=== PATIENT | female | born 1945 | race Caucasian/White ===

== ENCOUNTER → 2018-11-22 | Outpatient (CLI) | payer OTHER | LOC: M.MRI 11-20 17:30 | DX: S83.282A Other tear of lateral meniscus, current injury, left knee, initial encounter (principal); S83.242A Other tear of medial meniscus, current injury, left knee, initial encounter; M17.12 Unilateral primary osteoarthritis, left knee; X58.XXXA Exposure to other specified factors, initial encounter; Y93.89 Activity, other specified; Y92.89 Other specified places as the place of occurrence of the external cause; Y99.8 Other external cause status ==

== ENCOUNTER 2018-12-24 06:56 | Inpatient (IN) | payer OTHER ==
[2018-12-12 09:12] LABS: HEMATOCRIT 39.5 % (37.0-47.0); HEMOGLOBIN 12.9 gm/dL (12.0-15.0); MCH 27.5 pg (26.0-34.0); MCHC 32.5 g/dL (28.0-37.0); MCV 84.6 fL (80.0-100.0); MPV 7.8 fl. (7.2-11.1); RBC 4.67 mil/uL (4.20-5.00); RDW-CV 14.6 % (10.5-14.5); WBC 10.5 thou/uL (4.0-11.0)
[2018-12-12 09:12] LABS: URINE BILIRUBIN NEGATIVE (Negative); URINE BLOOD NEGATIVE (Negative); URINE CLARITY CLEAR; URINE COLOR YELLOW; URINE GLUCOSE-RANDOM NEGATIVE (Negative); URINE KETONES NEGATIVE (Negative); URINE LEUKOCYTES-REFLEX 1+ (Negative); URINE NITRITE-REFLEX NEGATIVE (Negative); URINE PROTEIN NEGATIVE (Negative); URINE UROBILINOGEN 0.2 E.U./dl (0.2-1.0)
[2018-12-12 09:15] LABS: PROTIME 10.4 Seconds (9.20-11.50)
[2018-12-12 09:22] LABS: SQUAMOUS 4-10 Moderate /LPF (0-3)
[2018-12-12 09:23] LABS: BACTERIA-REFLEX 1-9 Few /HPF (None Seen); CASTS None Seen /LPF (None Seen); CRYSTALS None Seen /LPF (None Seen); MUCUS 0-3 Light strn/LPF (None Seen); URINE RBC 0-2 Rare /HPF (0-2); URINE WBC-REFLEX 6-15 Few /HPF (0-5)
[2018-12-12 09:27] LABS: ALBUMIN 3.9 g/dL (3.4-5.0); CALCIUM 9.3 mg/dL (8.5-10.1); POTASSIUM 3.9 mmol/L (3.5-5.1); TOTAL BILIRUBIN 0.4 mg/dL (<0.1-1.0); TOTAL PROTEIN 7.7 g/dL (6.4-8.2)
--- NOTE | 2018-12-12 18:25 | EKG ---
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
[~2018-12-24] VITALS: Ht 162.6 cm; Wt 111.1 kg
--- NOTE | ~2018-12-24 | OP ---
[facility] [address] [place] [address] OPERATIVE REPORT Name: CHICOANAYA Room: [address] IN .R.#: [id number] Admission: 12/24/18 Attend Phys: Weston Byers Discharge: 12/25/18 Date of : 49 Report #: [id number] THIS REPORT FOR: //name// CC: Kaden Mirza DATE OF SERVICE: 12/24/2018 PREOPERATIVE DIAGNOSIS: Left knee osteoarthritis. POSTOPERATIVE DIAGNOSIS: Left knee osteoarthritis. PROCEDURE: Left total knee arthroplasty. SURGEON: Bakari Abrams II, DO. MEDICAL SCIENTIFIC OFFICER: TELLY Adair. ANESTHESIA: General endotracheal. ESTIMATED BLOOD LOSS: 50 mL. ANTIBIOTICS: Ancef preoperatively. DRAINS: Medium Hemovac. COMPLICATIONS: None. CONDITION: Stable to recovery room. IMPLANTS: Listed in the operative record and progress note. BRIEF HISTORY: The patient is seen in the preoperative area. Preop H and P was performed. Site was marked, questions were answered. Risks and benefits were discussed with the patient in detail about surgery. The patient wished to proceed and assuming all risks. DESCRIPTION OF PROCEDURE: The patient was taken to the operative suite and placed supine on the operating table, given appropriate anesthesia. The patient had well-padded tourniquet applied to the upper thigh, which was inflated to 300 mmHg after gravity exsanguination for duration of procedure. The operative knee was sterilely prepped and draped. Surgery begun by midline incision, this was carried down to subcutaneous tissues. A medial parapatellar arthrotomy was performed and carried down to bone. The patella was then everted and excess soft tissue removed from around the femur. A femoral cutting block was then [facility] [address] [place] [address] OPERATIVE REPORT Name: ANAYA GOLDEN Room: [address]#: [id number] Admission: 12/24/18 Attend Phys: Weston Byers Discharge: 12/25/18 Date of : 49 Report #: [id number] applied and checked with a drop tremaine for rotational alignment and appropriate position, appropriate cuts were made. The 4-in-1 cutting block was then applied to check for rotational alignment and appropriate position, appropriate cuts were made. Tibia was then exposed and excess meniscus was removed. Traction was placed on the collateral ligaments. The tibial cutting guide was then applied, pinned in appropriate position, checked with a drop tremaine for rotational alignment and slope and appropriate cut was made. The tibial bone was removed. Tibial base plate was then applied and checked for rotational alignment with the drop tremaine and pinned in appropriate position. The femur was then applied. The box cut was reamed. This was then trialed with the appropriate spacer, which showed excellent fit and fill, excellent stability of the knee in all range of motion. The patella was then reamed in appropriate fashion and sized to appropriate size. Three peg holes were drilled. It was then trialed and showed to have excellent flexion and extension, excellent tracking of the patella within the groove. The trials were removed. The tibia was punched in appropriate fashion. Bone ends were cleansed with Pulsavac irrigation and cement was mixed and applied to the final implants. These were malleted into position and held the knee in extension and compressed to allow cement to cure. After it cured, excess was removed utilizing Webster and osteotome. The wound was then copiously irrigated and the final spacer was then malleted in position. Tourniquet was deflated. Hemostasis was maintained with electrocautery. The pain cocktail was injected. PRP gel was sprayed through the internal aspects of the knee. Medium Hemovac drain was applied. Capsule was closed with 2 FiberWire and #1 Vicryl in [id number] fashion. Skin was closed with 2-0 Vicryl and running 3-0 Monocryl. Dermabond and sterile dressing applied. Clemente wrap and PolarCare applied. The patient was transported to the recovery room in stable condition. Counts were correct throughout the procedure. By: [id number] Abrams II DO /nt
[~2018-12-24 06:56] MED LIST: ASPIR 8181 MG PO; ATENOLOL-CHLOR1 EACH PO; NAPROSYN500 MG PO; NORVASC5 MG PO; OMEPRAZOLE 20 M20 M1 PO; SPIRONOLACTONE25 M1 PO; ZOCOR20 MG PO
[2018-12-24 11:00] VITALS: BP 151/80
[2018-12-24 15:15] VITALS: BP 132/81
[2018-12-25 04:29] LABS: HEMATOCRIT 33.5 % (37.0-47.0)
[2018-12-25 07:50] VITALS: BP 136/61
[2018-12-25 12:06] VITALS: BP 136/61
[2018-12-25] MEDS ORDERED: PERCOCET 5-3251 EACH PO (14:09)
[2018-12-25] MEDS ORDERED: XARELTO10 MG PO (14:10)
[2018-12-25 14:11] VITALS: BP 136/61
== END 2018-12-25 16:00 | disposition home health service (06) | DRG 470 ==
LOC: M.PRE 06:56 → EDSTATUS 10:05 → M.ORTHSURG 10:15 → M.TBA 10:15 → M.PRE 14:36 → M.ORTHSURG 15:04 → EDSTATUS 17:09 → M.SUR 17:12 → M.ORTHSURG 12-25 16:00
PROVIDERS: Orthopaedic Surgery; ADMIT Internal Medicine
PROC: 0SRD0J9 Replacement of Left Knee Joint with Synthetic Substitute, Cemented, Open Approach (ICD-10-PCS; principal; 2018-12-24)
DX: M17.12 Unilateral primary osteoarthritis, left knee (principal); E78.5 Hyperlipidemia, unspecified; I10 Essential (primary) hypertension; K21.9 Gastro-esophageal reflux disease without esophagitis; K08.409 Partial loss of teeth, unspecified cause, unspecified class; Z88.6 Allergy status to analgesic agent; Z88.1 Allergy status to other antibiotic agents; Z88.8 Allergy status to other drugs, medicaments and biological substances; Z90.710 Acquired absence of both cervix and uterus; Z98.42 Cataract extraction status, left eye; Z98.41 Cataract extraction status, right eye; Z79.82 Long term (current) use of aspirin; Z79.899 Other long term (current) drug therapy